=== PATIENT | female | born 1995 | race Asian ===

== ENCOUNTER 2025-04-22 18:21 | Emergency (ER) | payer OTHER, BC ==
[~2025-04-22] VITALS: Ht 157.5 cm; Wt 73.0 kg
[2025-04-22 18:28] VITALS: O2SAT 98
[2025-04-22 19:25] VITALS: TEMP 37
[2025-04-22] MEDS ORDERED: BENZONATATE 200MG CAPSULE PO ONE (19:45)
[2025-04-22] MEDS: IBUPROFEN 800MG TABLET PO ONE (20:33)
[2025-04-22] MEDS ORDERED: IBUP-2030 MT (20:37)
[2025-04-22] MEDS ORDERED: CYCL5TAB3 MT (20:37)
[2025-04-22 20:42] VITALS: TEMP 98.6
[2025-04-22] MEDS: ACETAMINOPHEN 325MG TABLET PO ONE (20:42)
[2025-04-22] MEDS: BENZONATATE 100MG CAPSULE PO SCH (21:09)
[2025-04-22 21:13] VITALS: BP 129/88; PULSE 100; RESP 17; O2SAT 99
== END 2025-04-22 21:25 | disposition home or self-care (01) ==
LOC: ER 18:21
DX: M54.50 Low back pain, unspecified (principal); M54.2 Cervicalgia; M25.512 Pain in left shoulder; Z90.49 Acquired absence of other specified parts of digestive tract; V89.2XXA Person injured in unspecified motor-vehicle accident, traffic, initial encounter; Y93.89 Activity, other specified; Y92.410 Unspecified street and highway as the place of occurrence of the external cause; Y99.8 Other external cause status
CPT/HCPCS: 71045; 72040; 72100; 99285